=== PATIENT | female | born 1980 | race African-American/Black ===

== ENCOUNTER 2020-12-23 12:52 | Outpatient (CLI) | payer OTHER | END 2020-12-23 12:53 | disposition home or self-care (01) | LOC: CSHMAMMO 12:52 | PROVIDERS: ATTEND Family Medicine | DX: Z12.31 Encounter for screening mammogram for malignant neoplasm of breast (principal); Z87.898 Personal history of other specified conditions; F17.200 Nicotine dependence, unspecified, uncomplicated | CPT/HCPCS: 71046; 77067 ==

== ENCOUNTER 2024-08-15 11:09 | Outpatient (CLI) | payer OTHER | END 2024-08-15 11:10 | disposition home or self-care (01) | LOC: CSHMAMMO 11:09 | PROVIDERS: ATTEND Family Medicine | DX: Z12.31 Encounter for screening mammogram for malignant neoplasm of breast (principal) | CPT/HCPCS: 77063; 77067 ==